=== PATIENT | male | born 1970 | race Asian ===

== ENCOUNTER 2016-03-13 06:36 | Observation (INO) | payer BC ==
[2016-03-13] MEDS ORDERED: Aspirin Low Dose CHEW TAB* 81 MG PO ONE (07:12)
[2016-03-13 08:00] LABS: Hematocrit 44 % (42-52); Hemoglobin 14.8 g/dl (14.0-18.0); Mean Corpuscular HGB Conc 34 g/dl (31-36); Mean Corpuscular Hemoglobin 29 pg (27-31); Mean Corpuscular Volume 87 fL (80-94); Mean Platelet Volume 9 um3 (7.4-10.4); Red Blood Count 5.03 10^6/ul (4.0-5.4); Red Cell Distribution Width 13 % (10.5-15)
--- NOTE | 2016-03-13 08:05 | RAD ---
INDICATION: Chest pain. COMPARISON: Comparison is made with a prior study from January 31, 2012. TECHNIQUE: Dual-energy PA and lateral views of the chest were obtained. FINDINGS: The heart is within normal limits in size. Mediastinal and hilar contours appear within normal limits. The lungs are clear. No pleural effusion or pneumothorax is seen. IMPRESSION: NO EVIDENCE FOR ACTIVE CARDIOPULMONARY DISEASE.
[2016-03-13 08:15] LABS: Troponin I 0.01 ng/mL (<0.04)
[2016-03-13 08:19] LABS: Albumin 3.9 g/dL (3.2-5.2); BUN/Creatinine Ratio 19.2 (8-20); Calcium 8.7 mg/dL (8.6-10.3); EGFR African American 139.1 (>60); EGFR Non-African American 108.1 (>60); Globulin 2.8 g/dL (2-4); Potassium 3.5 mmol/L (3.5-5.0); Total Bilirubin 0.4 mg/dL (0.2-1.0); Total Protein 6.7 g/dL (6.4-8.9)
[2016-03-13] MEDS ORDERED: Nitroglycerin TAB 0.4 MG* 0.4 MG TAB SL ONE (09:05)
--- NOTE | 2016-03-13 09:39 | RAD ---
HISTORY: Vertigo COMPARISONS: None TECHNIQUE: Multiple contiguous axial CT scans were obtained of the head without intravenous contrast. FINDINGS: HEMORRHAGE/INFARCT: There is no hemorrhage or acute infarct. MASSES/SHIFT: There is no mass or shift. EXTRA-AXIAL SPACES: There are no extra-axial fluid collections. SULCI AND VENTRICLES: The sulci and ventricles are normal in size and position for the patient's stated age. CEREBRUM: There are no focal parenchymal abnormalities. BRAINSTEM: There are no focal parenchymal abnormalities. CEREBELLUM: There are no focal parenchymal abnormalities. VESSELS: The vessels are grossly normal. PARANASAL SINUSES: The paranasal sinuses are clear. ORBITS: The orbits are unremarkable. BONES AND SOFT TISSUE: No bone or soft tissue abnormalities are noted. OTHER: None IMPRESSION: NO ACUTE INTRACRANIAL PATHOLOGY.
[2016-03-13] MEDS ORDERED: Acetaminophen TAB* 325 MG PO PRN (12:08)
[2016-03-13] MEDS ORDERED: Ondansetron INJ* 2 MG/ML VIAL IV PRN (12:08)
[2016-03-13] MEDS ORDERED: Heparin VIAL(*) 5000 UNITS/ML VIAL (FIVE THOUSAND) SUBCUT SCH (14:00)
--- NOTE | 2016-03-13 14:38 | HP ---
HISTORY AND PHYSICAL: DATE OF ADMISSION: 03/13/16 PRIMARY CARE PROVIDER: [facility]. He was seeing Dr. Quintero. He does not know his current PCP. PRIMARY CO FOUNDER AND PRESIDENT: Dr. Montgomery. ATTENDING PHYSICIAN WHILE IN THE HOSPITAL: Dr. Alyssa Ashley* (report being dictated by Ibrahima Alexis NP). CHIEF COMPLAINT: Chest pain. HISTORY OF PRESENTING ILLNESS: Mr. Casillas is a 45-year-old male patient that has a history of coronary artery disease. He also has a history of hypertension , hyperlipidemia, and arthritis. He comes into the ER today stating he woke up this morning, he was not feeling very well, he had blurry vision. He felt dizzy and lightheaded. He said that he got up and walked to the bathroom, he had noted that he was having some chest discomfort in his chest that was getting progressively worse and worse. He was concerned at that point because it was not going away. He took a nitro. It still was not going away after one nitro, then he called 911. He does state that yesterday, he was playing volleyball, last few days he has been feeling fatigued and weak more than normal , but no chest pressure except this morning. After playing volleyball yesterday , he noted that he had some left shoulder discomfort after playing and he fell off since then. He denies any recent URI symptoms with the exception that he does have some nasal congestion but denies having any fevers, cough, shortness of breath. No abdominal discomfort, any nausea or vomiting. He denied having any associated discomfort with the chest discomfort today. He decided to come into the ER, was evaluated. There was a concern because of the chest pressure and because of his risk factors, the hospitalist service was asked to evaluate for admission. PAST MEDICAL HISTORY: Significant for: 1. Hypertension. 2. Hyperlipidemia. 3. Arthritis. 4. CAD. PAST SURGICAL HISTORY: 1. He has had a cardiac catheterization, 2010. 2. He has had a shoulder arthroscopy. HOME MEDICATIONS: Include: 1. Plavix 75 mg daily. 2. Aspirin 81 mg daily. 3. Nitro 0.4 mg sublingual q.5 minutes p.r.n. chest pain. 4. Lopressor 25 mg daily. 5. Zocor 40 mg daily. ALLERGIES TO MEDICATIONS: Include no known drug allergies. FAMILY HISTORY: His father had a history of hyperlipidemia. SOCIAL HISTORY: He is , with children. He occasionally drinks alcohol. He does not smoke. Surrogate decision maker is his . REVIEW OF SYSTEMS: There is no documented fever. He denied having any significant weight change. There was no double vision. There was no ear discharge. No rhinorrhea. No sore throat. No thyroid enlargement. There was chest pressure per my HPI. There was no dyspnea on exertion. No orthopnea, no nocturnal dyspnea. No abdominal pain. No nausea, no vomiting. No dysuria, no frequency. No loss of consciousness. No pruritus and no skin ulcerations. Review of 14 systems completed, all others were negative. PHYSICAL EXAMINATION GENERAL: At this time, Mr. Casillas is a 45-year-old male patient. He appears well- nourished, well-developed. He is sitting in the ER stretcher. He does not appear to be in any acute distress. VITAL SIGNS: Reveal blood pressure 145/80 with a pulse of 81, respirations 18, O2 sat 97%, temperature 98.5. HEENT: Head: Atraumatic and normocephalic. Eyes: EOMs are intact. Sclerae anicteric and not pale. Throat: Oral mucosa appears to be moist. No oropharyngeal erythema. NECK: Supple. LUNGS: Clear to auscultation bilaterally. No wheezes, rales, or rhonchi. HEART: Sounds S1, S2. Regular rate and rhythm. No murmurs, rubs, or gallops. ABDOMEN: Soft, flat, nontender. Bowel sounds present. EXTREMITIES: Pulses were 2+ throughout. He is able to move all 4 extremities with 5/5 strength. NEUROLOGICAL: The patient is awake, he is alert, and oriented x3. Tongue midline. Fiscal Assistant were equal. No gross focal deficits. SKIN: Grossly intact. DIAGNOSTIC STUDIES/LAB DATA: Today revealed a WBC of 8.0, RBC of 5.03, hemoglobin 14.8, hematocrit of 44, and a platelet count of 206. The D-dimer is less than 200. Sodium 136, potassium 3.5, chloride 104, bicarb 24, BUN 15, creatinine 0.78, glucose 96, lactate 1.1, calcium 8.7. Total bili 0.4, AST 20, ALT 20, alk phos 60. Troponin 0.01, repeat 0.01. He did have a brain CT as well, which revealed no acute intracranial pathology. He had a chest x-ray obtained today, on my review, I did not appreciate any acute infiltrates or effusion, Radiology read it as no evidence for active cardiopulmonary disease. He did have an EKG as well today, which showed a normal sinus rhythm, rate of 79 , normal axis, no ST elevations or T-wave elevations, flattened T waves in lead III. Old medical records were reviewed. ASSESSMENT AND PLAN: Mr. Casillas is a 45-year-old male patient with multiple risk factors, coming into the ER today with complaint initially of blurry vision , which has subsided. In addition of this, also did have reports of chest discomfort, feeling fatigued over the last few days, and he has some shoulder pain after playing volleyball yesterday. He will be admitted under observation status for: 1. Chest discomfort. He has a KWASI score of 3 at this point. I do feel though because of the recurrence of his chest discomfort today and he has not had a stress test in over a year, I think he deserves a nuclear stress test to be done tomorrow. I tried to get it done today, but unfortunately we do not have the nuclear medicine to do it. I do think though because of the blurry vision, I would like to keep him overnight to observe for any more symptoms. We will go ahead and continue the Plavix and aspirin. He is on a beta flori. Continue these medications. He is also on a statin. So, he is medically optimized with the exception of nitrates, but we do not need those yet. He is not having any discomfort currently. I think at this point, his two negative troponins, we will go head and monitor him overnight. We ordered a stress test in morning. We will place him on telemetry. We will continue to follow. 2. Hypertension. Continue meds as prescribed. 3. Hyperlipidemia. Continue statin therapy. We will check lipids in the morning. 4. Coronary artery disease. We will go ahead and continue his statin, beta flori, aspirin, and Plavix. 5. DVT prophylaxis. He will be placed on SCDs. He is low risk. 6. Fluids, electrolytes, and nutrition. He can have a heart-healthy diet. 7. Code status. He is a full code. TIME SPENT: On the admission was 60 minutes; greater than half the time was spent [id number] with the patient obtaining my history and physical; other half time was spent going over the plan of care with the patient and implementing the plan of care. I did discuss the plan of care with my attending physician, Dr. Ashley; she is in agreement. IBRAHIMA ALEXIS NP ADDENDUM TO HISTORY AND PHYSICAL: ADDENDUM: Mr. Casillas is a 45-year-old male with history of heart disease, who presents complaining of chest pain. His initial workup in the ED is negative. He is going to be placed for overnight observation and stress test in the morning if his troponins continue to be negative. For further details of the patient's presentation and plan, please see history and physical dictated by Ibrahima Alexis NP, on 03/13/16, with which I agree. Alyssa Ashley MD CC: [facility]; Dr. Montgomery* [id number]/CPS #: [id number]/CPS #: [id number]
--- NOTE | 2016-03-13 16:08 | ED ---
Chanel Mckeon Adam, scribed for Sheldon Villalba MD on 03/13/16 at 0809 . HPI Chest Pain - HPI Summary HPI Summary: A 45 y/o male presents to the ED c/o CP that woke him up last night with blurry vision, dizziness, and nausea. This morning, he feels "off" with left shoulder pain and chest pain he describes as throbbing and rates as 5/10. He reports playing volleyball last night. Denies pain with inspiration, dizziness, or lightheadedness. Patient has a hx of CAD with 3 stents placed at [facility] in 2010 - he states these symptoms feel similar to when he needed care 6 years ago. He has been taking his medication as prescribed with no missed doses. FHx is positive for hyperlipidemia and cardiac disease. Drinks alcohol occasionally and does not use tobacco. - History of Current Complaint Chief Complaint: EDChestPainROMI Time Seen by Provider: 03/13/16 07:32 Hx Obtained From: Patient, Family/Out Patient Therapist - Onset/Duration: Started Hours Ago - This morning 05:30 Timing: Constant Initial Severity: Moderate Current Severity: Moderate Pain Intensity: 5 Pain Scale Used: 0-10 Numeric Chest Pain Location: Left Anterior Chest Pain Radiates: Yes Chest Pain Radiates To:: Shoulder - Left Character: Dull/Aching, Other: - Throbbing Aggravating Factor(s): Exertion - Volleyball last night Alleviating Factor(s): Nothing Associated Signs and Symptoms: Positive: Nausea, Other: - Blurred vision, dizziness. Negative: Fever, Vomiting Related History: Similar Episode/Dx as: - Needed cardiac catheterization - March 2010 - Allergy/Home Medications Allergies/Adverse Reactions: Allergies Allergy/AdvReac Type Severity Reaction Status Date / Time No Known Allergies Allergy Verified 01/31/12 21:39 Home Medications: Home Medications Aspirin EC Low Dose* [Ecotrin EC Low Dose*] 81 mg PO DAILY 03/13/16 [History Confirmed 03/13/16] Metoprolol Tartrate TAB* [Lopressor TAB*] 25 mg PO DAILY 03/13/16 [History Confirmed 03/13/16] Nitroglycerin TAB 0.4 MG* 0.4 mg SL Q5M PRN 03/13/16 [History Confirmed 03/13/16 ] Simvastatin (NF) [Zocor (NF)] 40 mg PO DAILY 03/13/16 [History Confirmed ] PMH/Surg Hx/FS Hx/Imm Hx Endocrine/Hematology History: Denies: Hx Diabetes Cardiovascular History: Reports: Hx Coronary Artery Disease - Surgical History Surgery Procedure, Year, and Place: PTCA - 3 STENTS IN RIGHT MAIN ARTERY Infectious Disease History: No Infectious Disease History: Denies: Traveled Outside the [place] in Last 30 Days - Family History Known Family History: Positive: Cardiac Disease - Father, Other - Hyperlipidemia - Social History Occupation: Employed Full-time Alcohol Use: Occasionally Substance Use Type: Reports: None Review of Systems Constitutional: Negative Negative: Fever, Chills Positive: Blurred Vision. Negative: Erythema ENT: Negative Negative: Sore Throat Positive: Chest Pain Respiratory: Negative Negative: Shortness Of Breath, Cough Positive: Nausea. Negative: Abdominal Pain, Vomiting, Diarrhea Genitourinary: Negative Negative: dysuria, hematuria Positive: Arthralgia - Left arm pain Skin: Negative Negative: Rash Neurological: Other - Dizziness Psychological: Normal All Other Systems Reviewed And Are Negative: Yes Physical Exam - Summary Physical Exam Summary: Constitutional: Well-developed, Well-nourished, Alert. (-) Distressed Skin: Warm, Dry HENT: Normocephalic; Atraumatic Eyes: Conjunctiva normal Neck: Musculoskeletal ROM normal neck. (-) JVD, (-) Stridor, (-) Tracheal deviation Cardio: Rhythm regular, rate normal, Heart sounds normal; Intact distal pulses; The pedal pulses are 2+ and symmetric. Radial pulses are 2+ and symmetric. (-) Murmur Pulmonary/Chest wall: Effort normal. (-) Respiratory distress, (-) Wheezes, (-) Rales Abd: Soft, (-) Tenderness, (-) Distension, (-) Guarding, (-) Rebound Musculoskeletal: (-) Edema, No reproducible shoulder or chest pain. Lymph: (-) Cervical adenopathy Neuro: Alert, Oriented x3 Psych: Mood and affect Normal Vital Signs On Initial Exam: Initial Vitals Temp Pulse Resp BP Pulse Ox 98.5 F 82 24 126/86 99 03/13/16 07:00 03/13/16 07:00 03/13/16 07:00 03/13/16 07:00 03/13/16 07:00 - [place] Coma Scale Coma Scale Total: 15 Diagnostics - Vital Signs Vital Signs Temp Pulse Resp BP Pulse Ox 03/13/16 07:30 76 18 144/90 97 03/13/16 07:04 84 21 97 03/13/16 07:00 98.5 F 82 24 146/85 99 - Laboratory Lab Results: Lab Results 03/13/16 Range/Units 07:00 WBC 8.0 (3.5-10.8) 10^3/ul RBC 5.03 (4.0-5.4) 10^6/ul Hgb 14.8 (14.0-18.0) g/dl Hct 44 (42-52) % MCV 87 (80-94) fL MCH 29 (27-31) pg MCHC 34 (31-36) g/dl RDW 13 (10.5-15) % Plt Count 206 (150-450) 10^3/ul MPV 9 (7.4-10.4) um3 Neut % (Auto) 51.9 (38-83) % Lymph % (Auto) 28.8 (25-47) % [place] % (Auto) 15.2 H (1-9) % Eos % (Auto) 3.2 (0-6) % Baso % (Auto) 0.9 (0-2) % Absolute Neuts (auto) 4.2 (1.5-7.7) 10^3/ul Absolute Lymphs (auto) 2.3 (1.0-4.8) 10^3/ul Absolute Monos (auto) 1.2 H (0-0.8) 10^3/ul Absolute Eos (auto) 0.3 (0-0.6) 10^3/ul Absolute Basos (auto) 0.1 (0-0.2) 10^3/ul Absolute Nucleated RBC 0 10^3/ul Nucleated RBC % 0 Result Diagrams: 03/13/16 07:00 03/13/16 07:00 Lab Statement: Any lab studies that have been ordered have been reviewed, and results considered in the medical decision making process. - Radiology CXR Xray Interpretation: No Acute Changes Radiology Interpretation Completed By: Radiologist - CT Brain CT Interpretation: No Acute Changes CT Interpretation Completed By: Radiologist - EKG 06:34 Cardiac Rate: NL - 79 EKG Rhythm: Sinus Rhythm EKG Interpretation: No STEMI Chest Pain Course/Dx - Course Assessment/Plan: CP related to exertion in a setting of known CAD. R/O MO. - Diagnoses Provider Diagnoses: Chest pain, unspecified, Vertigo - Provider Notifications Discussed Care Of Patient With: Dr. Ashley (Hospitalist, 10:35) - Agrees to accept patient Discharge - Discharge Plan Condition: Stable Disposition: ADMITTED TO [facility] documentation as recorded by the Chanel muller Adam accurately reflects the service I personally performed and the decisions made by Deejay florence Jerry, MD.
--- NOTE | 2016-03-13 17:30 | HP ---
HISTORY AND PHYSICAL: ADDENDUM: Mr. Casillas is a 45-year-old male with history of heart disease, who presents complaining of chest pain. His initial workup in the ED is negative. He is going to be placed for overnight ob servation and stress test in the morning if his troponins continue to be negative. For further deta ils of the patient's presentation and plan, please see history and physical dictated by Ibrahima rogel NP, on 03/13/16, with which I agree. [id number]/[facility] #: [id number]
[2016-03-13] MEDS ORDERED: Atorvastatin* 20 MG TAB PO SCH (23:00)
[2016-03-13] MEDS: Aspirin EC Low Dose* 81 MG TAB.EC PO SCH (23:54)
[2016-03-13] MEDS: Metoprolol Tartrate TAB* 25 MG PO SCH (23:55)
[2016-03-13] MEDS: Clopidogrel TAB* 75 MG PO SCH (23:55)
[2016-03-14 05:26] LABS: Hematocrit 45 % (42-52); Hemoglobin 15.3 g/dl (14.0-18.0); Mean Corpuscular HGB Conc 34 g/dl (31-36); Mean Corpuscular Hemoglobin 30 pg (27-31); Mean Corpuscular Volume 87 fL (80-94); Mean Platelet Volume 8 um3 (7.4-10.4); Red Blood Count 5.15 10^6/ul (4.0-5.4); Red Cell Distribution Width 13 % (10.5-15); White Blood Count 7.6 10^3/ul (3.5-10.8)
[2016-03-14 05:42] LABS: BUN/Creatinine Ratio 15.8 (8-20); Calcium 9.2 mg/dL (8.6-10.3); EGFR African American 143.3 (>60); EGFR Non-African American 111.4 (>60); HDL Cholesterol 38.1 mg/dL; Potassium 3.8 mmol/L (3.5-5.0)
--- NOTE | 2016-03-14 13:50 | RAD ---
HISTORY: Coronary artery disease, chest pain COMPARISONS: None TECHNIQUE: A 2 day stress/rest myocardial perfusion study was performed, with exercise stress. The exercise portion was performed using the Karl protocol, for a total METs of 12.8. The stress portion was monitored by Dr. Zavala. Gated SPECT imaging was performed, with CT-based attenuation correction DOSE: Stress: Technetium 99m tetrofosmin, 25.6 millicuries, injected at 11:18 AM on March 14, 2016 Rest: Technetium 99m tetrofosmin, 24.81 millicuries, injected at 1:39 PM on March 13, 2016 Pharmacologic agent: None FINDINGS: CARDIAC MONITORING: No EKG changes of ischemia with stress. Maximum heart rate of 182 bpm, 104% of predicted. EF: 75 % with stress, 78% with rest TID: 0.95 MOTION: Normal motion, with normal wall thickening. PERFUSION: There are no fixed or reversible perfusion defects. OTHER: None IMPRESSION: NO FIXED OR REVERSIBLE PARENCHYMAL PERFUSION DEFECTS ASSESSMENT: LOW RISK. Based on imaging criteria from ACC/AHA 2002. Guideline Update for the Management of Patient's with Chronic Stable Angina, table 23. Noninvasive Risk Stratification.
[2016-03-14] MEDS: Aspirin EC Low Dose* 81 MG TAB.EC PO SCH (14:05)
[2016-03-14] MEDS: Clopidogrel TAB* 75 MG PO SCH (14:05)
[2016-03-14] MEDS: Metoprolol Tartrate TAB* 25 MG PO SCH (14:05)
[2016-03-14 16:16] VITALS: BP 120/75
--- NOTE | 2016-03-14 18:51 | PN ---
Subjective Date of Service: 03/14/16 Interval History: Patient seen and examined at bedside. Pt states that he has been chest pain free today. Pt feels that his chest pain was related to a stressful event yesterday. Pt reports that he has an appointment with Cardiology soon, Pt encouraged to keep that appointment. Denies fever, chills, shortness of breath, chest discomfort, N/V/D. Tele: Sinus rate, 70-80's. Pt with 2 short bursts of sinus tachycardia overnight. Family History: Unchanged from Admission Social History: Unchanged from Admission Past Medical History: Unchanged from Admission Objective Vital Signs 03/13/16 03/13/16 03/14/16 19:21 23:56 04:24 Temperature 98.3 F 98.9 F 98.2 F Pulse Rate 92 92 64 Respiratory 18 16 16 Rate Blood Pressure 133/78 116/77 105/67 (mmHg) O2 Sat by Pulse 97 97 98 Oximetry 03/14/16 03/14/16 07:49 15:49 Temperature 99.0 F 98.3 F Pulse Rate 66 72 Respiratory 16 14 Rate Blood Pressure 113/69 120/75 (mmHg) O2 Sat by Pulse 98 99 Oximetry Oxygen Devices in Use Now: None Appearance: NAD, Pt sitting up in bed. Eyes: No Scleral Icterus, PERRLA Ears/Nose/Mouth/Throat: NL Teeth, Lips, Gums, Mucous Membranes Moist Neck: NL Appearance and Movements; NL JVP, Trachea Midline Respiratory: Symmetrical Chest Expansion and Respiratory Effort, Clear to Auscultation Cardiovascular: NL Sounds; No Murmurs; No JVD, RRR Abdominal: NL Sounds; No Tenderness; No Distention Extremities: No Edema Skin: No Rash or Ulcers Neurological: Alert and Oriented x 3, NL Muscle Strength and Tone Lines/Tubes/Other Access: Clean, Dry and Intact Peripheral IV - site benign. Nutrition: Taking PO's Result Diagrams: 03/14/16 05:15 03/14/16 05:15 Additional Lab and Data: Assess/Plan/Problems-Billing Assessment: Mr. Casillas is a 45 yo male with PMH significant for HTN, HLD, and CAD who presented to the emergency room with chest discomfort and fatigued with associated shoulder pain after playing volleyball. - Patient Problems (1) Chest pain Code(s): R07.9 - CHEST PAIN, UNSPECIFIED SNOMED Code(s): 71476883 Comment: Chest pain free. Pt had a 2 day stress test that was low risk. Trops 0.01, 0.01, 0.00. Continue ASA, Plavix, statin and B-flori. (2) HTN (hypertension) Code(s): I10 - ESSENTIAL (PRIMARY) HYPERTENSION SNOMED Code(s): 46534197 Comment: BP controlled. Continue home medications. (3) HLD (hyperlipidemia) Code(s): E78.5 - HYPERLIPIDEMIA, UNSPECIFIED SNOMED Code(s): 20993389 Comment: Continue statin. (4) DVT prophylaxis Code(s): NVM8344 - SNOMED Code(s): 294513653 (5) Full code status Code(s): Z78.9 - OTHER SPECIFIED HEALTH STATUS SNOMED Code(s): 516671738 Status and Disposition: OBV. Stable for discharge to home.
--- NOTE | 2016-03-15 16:47 | DS ---
DISCHARGE SUMMARY: DATE OF ADMISSION: 03/13/16 DATE OF DISCHARGE: 03/14/16 ATTENDING PHYSICIAN: Dasha Dooley DO * (dictated by Mi Huynh NP). PRIMARY CARE PROVIDER: Dr. Clayton Silver. PRIMARY DIAGNOSIS: Atypical chest pain. SECONDARY DIAGNOSES: 1. Hypertension. 2. Hyperlipidemia. 3. Coronary artery disease. STUDIES WHILE IN THE HOSPITAL: 1. Nuclear cardiac stress test done over 2 days on 03/13/16 and 03/14/16. Radiologist's impression: No fixed or reversible parenchymal perfusion defects. Low risk. Blasting Helper's conclusion: Maximal exercise for 10, 14 of a Karl. Normal sinus rhythm with TAMEKA at rest. Appropriate heart rate response. Hypertensive blood pressure response. Good exercise capacity. No significant ST changes with stress. Blasting Helper's conclusion: Negative stress EKG. Low risk. 2. Chest x-ray on 03/13/16. Radiologist's impression: No evidence for acute cardiopulmonary disease. 3. Brain CT on 03/13/16. Radiologist's impression: No acute intracranial pathology. DISCHARGE MEDICATIONS: Continued home medications: 1. Plavix 75 mg oral daily. 2. Aspirin 81 mg oral daily. 3. Metoprolol tartrate 25 mg oral daily. 4. Simvastatin 40 mg oral daily. 5. Nitroglycerin 0.4 mg sublingual every 5 minutes as needed for chest pain. HISTORY OF PRESENT ILLNESS/HOSPITAL COURSE: Mr. Casillas is a 45-year-old male with past medical history significant for coronary artery disease, hypertension , and hyperlipidemia, who presented to the emergency room after waking up not feeling well and reportedly having blurry vision. The patient also reports having dizziness and lightheadedness. The patient noted that when he was walking to the bathroom he had some chest discomfort that progressively was increasing. At that point, the patient was concerned because it was not going away, he took a nitro. The patient reports that the pain did not go away after one nitro and he called 911. The patient also states that the day prior to his admission, he had been playing volley ball and over the last few days he reports increased fatigue and weakness, but no reports of chest discomfort while playing volleyball. The patient also noted that he started having left shoulder discomfort after playing volleyball and he has felt off ever since. While in the emergency room, the patient had chest x-ray showing no acute findings. The patient also had brain CT showing no acute findings. The patient had an EKG that showed a normal sinus rhythm with no ST elevation or T-wave inversion or flattening, although the patient did have some flattened T-waves in lead 3. The patient had labs that were fairly unremarkable. Based on the patient's history and complaints of chest discomfort and increasing fatigue and arm pain, hospitalists were asked to evaluate the patient for admission. While in the hospital, the patient reports being chest discomfort free except for a discomfort that he reports having overnight that resolved. The patient describes this discomfort as more like a palpitation. It is to note that overnight the patient was noted to have two brief episodes of tachycardia with heart rates up into the 120s. The patient's troponins were essentially flat at 0.01, 0.01, and 0.00. The patient was able to ambulate without chest discomfort. He underwent a 2 day nuclear cardiac stress test that was low risk. The patient is already medically optimized on medications including a beta-flori, statin, Plavix and aspirin. Mr. Casillas is stable for discharge to home today. Vital signs are as follows: Temperature 98.3, heart rate 72, respiratory rate 14, O2 sat 99%, blood pressure 120/75. DISCHARGE PLAN: Mr. Casillas will be discharged to home. Activity as tolerated. He should be on a heart healthy diet. As far as the patient's history of acute coronary syndrome, he should be continued on Plavix, aspirin, his beta- flori and statin. The patient was given a new prescription for sublingual nitroglycerin. He reports that what he had at home was outdated. Based on the patient's reports of having what sounds like may be palpitations and slight period of tachycardia overnight, I recommend if the patient continues to have similar symptoms that he be placed on Holter or event monitor to further evaluate the his symptoms. As far as the patient's hypertension and hyperlipidemia, he should be continued on his beta- flori and statin. As far as the patient's left shoulder discomfort, I suspect that he strained some muscles while playing volleyball. The patient had reported that he had a followup with Dr. Montgomery with Cardiology coming up in the near future. When I attempted to call the sawyer helper's office to verify this, they reported that the patient has cancelled multiple visits and that they were unable to make an appointment for him at this time, but if his primary care doctor referred him back to them they would be happy to see him. I recommend if the patient is felt to need further cardiac evaluation and followup, a referral will be made back to Cardiology. The patient has been asked to return to emergency room for return of chest pain or shortness of breath. This is a summarized report of a complex medical history and hospital stay. For further details, please see the entire medical record. TIME SPENT: Time for this discharge was 50 minutes, and 25 minutes was spent face- to-face with the patient and family discussing discharge plans and instructions. CONDITION ON DISCHARGE: Stable. Reviewed by CRISTIANA MASSEY 03/22/16 [id number] CC: Clayton Silver MD* [id number]/CPS #: [id number] MTDD
== END 2016-03-14 16:15 | disposition home or self-care (01) ==
LOC: ED 06:36 → MEDTELE 10:44
PROVIDERS: ADMIT Internal Medicine; ATTEND Hospitalist
DX: R07.9 Chest pain, unspecified (principal); R00.0 Tachycardia, unspecified; I10 Essential (primary) hypertension; E78.5 Hyperlipidemia, unspecified; M19.90 Unspecified osteoarthritis, unspecified site; I25.10 Atherosclerotic heart disease of native coronary artery without angina pectoris; Z95.5 Presence of coronary angioplasty implant and graft; Z79.02 Long term (current) use of antithrombotics/antiplatelets; Z79.82 Long term (current) use of aspirin; Z79.899 Other long term (current) drug therapy
CPT/HCPCS: 36415; 70450; 71020; 78452; 80048; 80053; 80061; 83605; 84484; 85025; 85379; 85610; 93005; 93017; 99284; A9270-GY; A9502; G0378

== ENCOUNTER 2018-12-18 18:13 | Emergency (ER) | payer BC, OTHER ==
--- OUTSIDE RECORDS SUMMARY | 2018-12-18 18:19 | XMS REPORT | Summary of Care ---
:1970 Author Organization [facility] Address [address] [place] [address] Care Team Providers Name Role Phone Mart Hamlin Primary Care Provider Reason for Visit Reason Comments Follow Up 1 yr., CAD, tired (headaches x 2 mos). Encounter Details Date Type Department Care Team Description 12/09/2018 Office Visit [facility] [place], Coronary artery disease involving [place] coronary artery of [place] heart without angina pectoris ( Primary Dx); Cardiology MD Thanh Dyslipidemia; [address] [facility] [address] [facility] Nonintractable episodic headache, [place] [address] [place] [address] [phone] Allergies No Known Allergiesdocumented as of this encounter (statuses as of 12/09/2018) Medications Medication Sig Dispensed Refills Start Date End Date Status Aspirin 81 MG Oral Take 81 mg 0 Active Tab by mouth DAILY. diclofenac EC Take 75 mg 60 Tab 2 04/21/2018 Active (VOLTAREN) 75 MG by mouth TWO Oral Tab EC TIMES DAILY NEEDED (elbow pain). ezetimibe (ZETIA) TAKE 1 90 Tab 3 08/12/2018 Active 10 MG Oral Tab TABLET BY MOUTH ONCE DAILY. loratadine Take 1 Tab 30 Tab 11 08/19/2018 Active (CLARITIN,ALAVERT) by mouth 10 MG Oral Tab DAILY. atorvastatin Take 1 Tab 30 Tab 5 09/11/2018 Active (LIPITOR) 80 MG by mouth Oral Tab DAILY. propranolol Take 1 Cap 30 Cap 11 12/09/2018 Active (INDERAL LA) 80 MG by mouth Oral CAPSULE SR 24 DAILY. HRIndications: Coronary artery disease involving [place] coronary artery of [place] heart without angina pectoris metoprolol take 1 60 Tab 5 04/21/2018 Discontinued (LOPRESSOR) 25 MG tablet by 9 (Provider Oral Tab mouth once Discontinued) daily documented as of this encounter (statuses as of 12/09/2018) Active Problems Problem Noted Date Dermatitis 07/10/2017 Elevated cholesterol CAD (coronary artery disease) Overview: has stent Anxiety documented as of this encounter (statuses as of 12/09/2018) Immunizations Name Administration Dates Next Due Influenza (IM) Preservative Free 02/19/2018 documented as of this encounter Social History Tobacco Use Types Packs/Day Years Used Date Never Smoker Smokeless Tobacco: Never Used Alcohol Use Drinks/Week oz/Week Comments Yes Occasionally Sex Assigned at Date Recorded Not on file Job Start Date Occupation Industry Not on file Not on file Not on file Travel History Travel Start Travel End No recent travel history available. documented as of this encounter Last Filed Vital Signs Vital Sign Reading Time Taken Comments Blood Pressure 132/70 12/09/2018 1:41 PM EDT Pulse 77 12/09/2018 1:41 PM EDT Temperature - - Respiratory Rate - - Oxygen Saturation - - Inhaled Oxygen Concentration - - Weight 74.3 kg (163 lb 11.2 oz) 12/09/2018 1:41 PM EDT Height 167.6 cm (5' 6") 12/09/2018 1:41 PM EDT Body Mass Index 26.42 12/09/2018 1:41 PM EDT documented in this encounter Patient Instructions Patient InstructionsMcThanh Ridley MD - 12/09/2018 1:40 PM EDT STOP taking metoprolol and START taking propranolol 80mg once daily. Work on doing some more regular exercise. Get your bloodwork checked today. Follow up with me in 1 year or sooner if needed. documented in this encounter Progress Notes hTanh Eldridge MD - 12/09/2018 1:40 PM EDT [facility] Note Patient: Rodrigo Casillas Date of : 1970 Date of Service: 12/09/2018 REFERRING PRACTITIONER: Thanh Eldridge PRIMARY CARE PROVIDER: Mart Hamlin Chief Complaint: Chief Complaint Patient presents with Follow Up 1 yr., CAD, tired (headaches x 2 mos). History of Present Illness: We had the pleasure of seeing Rodrigo Casillas today at the [facility] Cardiology Office. He is a 48-y.o. male with hyperlipidemia and CAD s/p PCI with 3 stents to the LADat [facility] in April 2010. Mr. Casillas returns to cardiology clinic today for routine annual f/u of his CAD. Since his last visit with me, he reports that he's been feeling a lot of fatigue over the past 2-3 months. He doesn't feel sleepy tired, but has noted some intermittent headaches that occur most often in the afternoon ( particularly if he misses coffee). Takes ibuprofen for the headache, which helps the BARROSO. Stays active with volleyball and walking; denies any CP/pressure or limiting dyspnea. Denies any palpitations,lightheadedness, or syncope. No orthopnea, paroxysmal dyspnea, or lower extremity edema. Patient Active Problem List Diagnosis Elevated cholesterol CAD (coronary artery disease) Anxiety Dermatitis Past Medical History: Diagnosis Date Anxiety CAD (coronary artery disease) has stent Elevated cholesterol Past Surgical History: Procedure Laterality Date ANGIOPLASTY STENT CORONARY VIA GROIN 05/01/2010 LEFT HEART CARDIAC CATH 05/01/2010 stenting x3 of mid LAD [place] SHOULDER SURG PROC UNLISTED Right RCR, Dr. Maloney No Known Allergies Current Outpatient Medications Medication Aspirin 81 MG Oral Tab atorvastatin (LIPITOR) 80 MG Oral Tab diclofenac EC (VOLTAREN) 75 MG Oral Tab EC ezetimibe (ZETIA) 10 MG Oral Tab loratadine (CLARITIN,ALAVERT) 10 MG Oral Tab metoprolol (LOPRESSOR) 25 MG Oral Tab Family History Problem Relation Age of Onset High Cholesterol Mother High Cholesterol Father Heart Father Diabetes Paternal Grandmother Diabetes Paternal Grandfather High Cholesterol Sister High Cholesterol Sister Anesth Problems No family history Arthritis No family history Cancer No family history Clotting Disorder No family history Heart Disease No family history Hypertension No family history Kidney Disease No family history Thyroid Disease No family history Social History Socioeconomic History Marital status: Spouse name: Not on file Number of children: Not on file Years of education: Not on file Highest education level: Not on file Occupational History Not on file Social Needs Financial resource strain: Not on file Food insecurity: Worry: Not on file Inability: Not on file Transportation needs: Medical: Not on file Non-medical: Not on file Tobacco Use Smoking status: Never Smoker Smokeless tobacco: Never Used Substance and Sexual Activity Alcohol use: Yes Comment: Occasionally Drug use: No Sexual activity: Yes Partners: Female Lifestyle Physical activity: Days per week: Not on file Minutes per session: Not on file Stress: Not on file Relationships Social connections: Talks on phone: Not on file Gets together: Not on file Attends yarsanism service: Not on file Active member of club or organization: Not on file Attends meetings of clubs or organizations: Not on file Relationship status: Not on file Intimate partner violence: Fear of current or ex partner: Not on file Emotionally abused: Not on file Physically abused: Not on file Forced sexual activity: Not on file Other Topics Concern Back Care Not Asked Bike Helmet Not Asked Blood Transfusions Not Asked Caffeine Concern Not Asked Exercise Not Asked Hobby Hazards Not Asked International Travel Not Asked Service Not Asked Occupational Exposure Not Asked Seat Belt Not Asked Self-Exams Not Asked Sleep Concern Not Asked Special Diet Not Asked Stress Concern Not Asked Weight Concern Not Asked Social History Narrative Not on file Review of Systems - Negative except for mild intermittent abdominal discomfort x 2 months and as noted in HPI. Physical Exam: Vitals: 12/09/18 1341 BP: 132/70 BP Location: Right arm Patient Position: Sitting Pulse: 77 Weight: 163 lb 11.2 oz (74.3 kg) Height: 5' 6" (1.676 m) Body mass index is 26.42 kg/m. General: Well nourished, alert 48-y.o. male in [facility] HEENT: anicteric, MMM, no E/E OP, conj pink Neck: JVP approx 5 cm above RA, no carotid bruits or LAD CV: RRR, normal s1/s2, no appreciable murmurs, rubs, or gallops Pulm: CTA bilaterally without wheezes, rhonchi, or rales. No increased work of breathing. Abd: soft, NT, ND, +BS. No appreciable pulsatile masses or bruits. Ext: no lower extremity edema, no cyanosis, no cords, redness, or warmth, 2+ distal pulses Neuro: no gross focal deficits Skin: No visible lesions Labs: Lab Results Component Value Date NA 142 04/13/2018 K 4.4 04/13/2018 CL 107 04/13/2018 CO2 23 04/13/2018 GLUCOSE 92 04/13/2018 BUN 15 04/13/2018 CREATININE 0.7 (L) 04/13/2018 CALCIUM 9.0 04/13/2018 TP 7.5 04/13/2018 ALBUMIN 4.1 04/13/2018 AST 55 04/13/2018 ALT 67 04/13/2018 ALK 71 04/13/2018 TBILI 0.3 04/13/2018 EGFR >60 04/13/2018 No results found for: BNP Lab Results Component Value Date CHOL 141 04/13/2018 TRIG 50 04/13/2018 HDL 38 (L) 04/13/2018 LDL 93 04/13/2018 LDLHDLRATIO 2.4 04/13/2018 CHOLHDLRATIO 3.7 04/13/2018 Cardiac Studies: EKG Today (I personally reviewed): NSR in 70s. Normal EKG. TTE 11/13/17: FINAL IMPRESSION: Normal left heart size with normal LV systolic function and no regional wall motion abnormalities; estimated LVEF 55-60%. Normal right heart size and RV systolic function. No structurally or hemodynamically significant valvular disease. No pericardial effusion. Exercise SPECT at [facility] 03/14/16: -Exercised for 12.8 METs without CP -No EKG changes -No fixed or reversible perfusion defects -LVEF 70% TTE at [facility] 05/28/11: -LVEF 60% -Normal right heart -Trace MR and TR Left Heart Cath at [facility] 2010: Report not available, but per notes, had 80% mLAD treated with PCI and 40% RCA. Assessment & Plan: Rodirgo Casillas is a 48-y.o. male with hyperlipidemia and CAD s/p PCI with 3 stents to the LAD at [facility] in April 2010. ICD-9-CM ICD-10-CM 1. Coronary artery disease involving [place] coronary artery of [place] heart without angina pectoris 414.01 I25.10 propranolol (INDERAL LA) 80 MG Oral CAPSULE SR 24 HR COMPREHENSIVE METABOLIC PANEL LDL, DIRECT AMBULATORY 12 LEAD EKG (GLOBAL) LDL, DIRECT COMPREHENSIVE METABOLIC PANEL 2. Dyslipidemia 272.4 E78.5 3. Nonintractable episodic headache, unspecified headache type 784.0 R51 1. Coronary Artery Disease, s/p PCI to LAD: Currently asymptomatic from an ischemic standpoint. I recommend the following medical regimen: Antiplatelets: Continue aspirin 81 mg daily. Statin: LDL 93 in April 2018 despite max dose atorvastatin as well as ezetimibe. Insurancedidn't cover Crestor. Will recheck a direct LDL today. If that is still > 70 then I'll have to consider starting Repatha and stopping ezetimibe. Beta-flori: Has been taking Lopressor once daily for some reason. Given what sounds like migraine headaches, I'm going to try switching him from metoprolol to propranolol ER 80mg once daily. GERBER-inhibitor/ARB: N/A. BP and LVEF normal. Thank you for allowing me to participate in the care of Rodrigo Casillas. We will plan on f/u in our office in 1 year or sooner prn. If you have any questions or concerns please feel free to call our office at . Thanh Eldridge MD, 12/09/2018, 14:56 This note was created using my previous note as a template; changes were made where appropriate, andall information in the current note is up to date to the best of my knowledge. documented in this encounter Plan of Treatment Date Type Specialty Care Team Description 01/19/2019 Office Visit Internal Medicine Mart Hamlin MD [address] [place] [id number] 12/16/2019 Office Visit Cardiology Thanh Eldridge MD [address] [place] [id number] Name Type Priority Associated Diagnoses Date/Time COMPREHENSIVE METABOLIC Lab Routine Coronary artery disease 12/09/2018 2: 20 PM PANEL involving [place] EDT coronary artery of [place] heart without angina pectoris LDL, DIRECT Lab Routine Coronary artery disease 12/09/2018 2:20 PM involving [place] EDT coronary artery of [place] heart without angina pectoris Name Type Priority Associated Diagnoses Order Schedule COMPREHENSIVE METABOLIC Lab Routine Coronary artery disease Expected: 12/09 PANEL [place] (Approximate), coronary artery of Expires: 12/10/2019 [place] heart without angina pectoris LDL, DIRECT Lab Routine Coronary artery disease Expected: 12/09/2018 involving [place] (Approximate), coronary artery of Expires: 12/10/2019 [place] heart without angina pectoris AMBULATORY 12 LEAD EKG EKG Routine Coronary artery disease Ordered: 2018 (GLOBAL) [place] coronary artery of [place] heart without angina pectoris Health Maintenance Due Date Last Done Comments MEDICARE ANNUAL WELLNESS 1970 VISIT PNEUMOCOCCAL 0-64 YRS (1 of 10/27/1977 1 - PPSV23) DEPRESSION SCREENING 10/13/2018 10/13/2017 INFLUENZA VACCINE (#1) 2018 02/19/2018 DIABETES SCREENING 04/13/2019 04/13/2018, 05/20/2017 LIPID DISORDER SCREENING 09/12/2019 09/11/2018, 04/13/2018, 10/09/2017, Additional history exists HPV IMMUNIZATION SERIES Aged Out No longer eligible based on patient's age to complete this topic MENINGOCOCCAL VACCINE IMM Aged Out No longer eligible based on patient's age to complete this topic documented as of this encounter Results Not on filedocumented in this encounter Visit Diagnoses Diagnosis Coronary artery disease [place] coronary artery of [place] heart without angina pectoris - Primary Dyslipidemia Other and unspecified hyperlipidemia Nonintractable episodic headache, unspecified headache type documented in this encounter Insurance Payer Benefit Plan / Subscriber ID Effective Dates Phone Address Type Group [employer] MEDICARE FIDELIS CARE xxxxxxxxxxx 2017-Present [employer] documented as of this encounter
[2018-12-18 18:54] VITALS: BP 127/74
--- NOTE | 2018-12-18 19:12 | UC ---
Complaint Male HPI - HPI Summary HPI Summary: Patient is a 48-year-old male presenting with pelvic pressure, urinary frequency , urgency, and burning 3 weeks. Patient started off mild increasingly worsen. Notes itching but this is something that happens occasionally and it goes away on its own. Itching is not currently present. Notes constant suprapubic pressure. Notes "heaviness" of testicles but no pain. Notes intermittent headaches over the past few weeks. Denies any alleviating factors. Denies discharge from penis. Denies blood in the urine. Denies flank pain. Denies concern for STI. Denies any genital lesions or rashes. Denies any new sexual partners. Denies history of prostate issues. Denies fever and chills. Denies nausea vomiting and diarrhea. Patient is eating and drinking normally. - History of Current Complaint Chief Complaint: UCAbdominalPain Stated Complaint: ABDOMINAL PAIN Hx Obtained From: Patient Onset/Duration: Gradual Onset, Lasting Weeks Timing: Constant Severity Currently: Moderate Pain Intensity: 7 Pain Scale Used: 0-10 Numeric - Allergies/Home Medications Allergies/Adverse Reactions: Allergies Allergy/AdvReac Type Severity Reaction Status Date / Time No Known Allergies Allergy Verified 12/18/18 18:54 PMH/Surg Hx/FS Hx/Imm Hx - Surgical History Surgical History: Yes Surgery Procedure, Year, and Place: [facility] - 3 STENTS IN RIGHT MAIN ARTERY - Family History Known Family History: Positive: Cardiac Disease - Father, Other - Hyperlipidemia - Social History Alcohol Use: Occasionally Substance Use Type: None Smoking Status (MU): Never Smoked Tobacco Review of Systems All Other Systems Reviewed And Are Negative: Yes Constitutional: Positive: Negative. Negative: Fever, Chills, Fatigue Skin: Positive: Negative Respiratory: Positive: Negative. Negative: Shortness Of Breath Cardiovascular: Positive: Negative Gastrointestinal: Positive: Abdominal Pain. Negative: Vomiting, Diarrhea, Nausea Genitourinary: Positive: Dysuria, Frequency, Urgency, Vaginal/Penile Burning, Vaginal/Penile Itching. Negative: Hematuria, Vaginal/Penile Discharge Neurological: Positive: Headache Physical Exam Triage Information Reviewed: Yes Appearance: Well-Appearing, No Pain Distress, Well-Nourished Vital Signs: Initial Vital Signs Temp 98.9 F 12/18/18 18:50 Pulse 72 12/18/18 18:50 Resp 18 12/18/18 18:50 BP 127/74 12/18/18 18:50 Pulse Ox 98 12/18/18 18:50 Lab Results 12/18/18 Range/Units 19:13 POC Urine Color Yellow POC Urine Clarity Clear POC Urine pH 7.0 (5-9) POC Ur Specif [place] 1.020 (1.010-1.030) POC Urine Protein Negative (Negative) POC Ur Glucose (UA) Negative (Negative) POC Urine Ketones Negative (Negative) POC Urine Blood Negative (Negative) POC Urine Nitrite Negative (Negative) POC Urine Bilirubin Negative (Negative) POC Urine Urobilinogen 0.2 (Negative) POC U Leukocyte Esteras Negative (Negative) Vital Signs Reviewed: Yes Eyes: Positive: Conjunctiva Clear ENT: Positive: Hearing grossly normal Neck: Positive: Supple Respiratory Exam: Normal Respiratory: Positive: Lungs clear, Normal breath sounds, No respiratory distress Cardiovascular Exam: Normal Cardiovascular: Positive: RRR Abdominal Exam: Normal Abdomen Description: Positive: No Organomegaly, Soft. Negative: Nontender - Mild tenderness to palpation of suprapubic area, CVA Tenderness (R), CVA Tenderness (L), Distended, Guarding, Hepatomegaly, McBurney's Point Tenderness, Splenomegaly Bowel Sounds: Positive: Present Neurological: Positive: Alert Psychological: Positive: Age Appropriate Behavior Complaint Male Course/Dx - Course Course Of Treatment: Patient declined genitalia examination including testicular exam. Discussed with patient that a UA results were negative but a culture will be sent and he will be notified with any changes that need to be maintained his treatment. Prescribed Pyridium for treatment of burning and pain. Instructed patient to follow up with his PCP or the urology referral for further follow-up. Instructed him to go to the ED if symptoms worsen including fever, worsening abdominal pain, nausea and vomiting, blood in the urine, and flank pain. - Differential Dx/Diagnosis Provider Diagnosis: Urinary tract infection symptoms Discharge ED - Sign-Out/Discharge Documenting (check all that apply): Patient Departure All imaging exams completed and their final reports reviewed: No Studies - Discharge Plan Condition: Stable Disposition: HOME Prescriptions: Phenazopyridine TAB* [Pyridium 100 mg TAB*] 100 mg PO TID PRN #12 tab PRN Reason: Pain - Moderate Referrals: Clayton Silver MD [Primary Care Provider] - As Soon As Possible Shoaib Cee MD [Medical Doctor] - Additional Instructions: As discussed, your urine test was negative today. A culture of your urine will be sent and you will be notified with any positive results. Take pyridium as prescribed to help relieve your pain and burning with urination. I strongly encourage you to follow up with your PCP or the urologist as listed below for further evaluation. Go to the emergency room if your symptoms worsen, including fever, nausea, vomiting, increasing pain, or blood in the urine. - Billing Disposition and Condition Condition: STABLE Disposition: Home - Attestation Statements Provider Attestation: I was available for consult. This patient was seen by the [facility]. The patient was not presented to, seen by, or examined by me. -Monty
[2018-12-21 13:45] LABS: Chlamydia trachomatis NAA Negative (Negative); Neisseria gonorrhoeae (GC) NAA Negative (Negative)
== END 2018-12-18 19:56 | disposition home or self-care (01) ==
LOC: UCEAST 18:13
DX: R35.0 Frequency of micturition (principal); R39.15 Urgency of urination; R30.0 Dysuria
CPT/HCPCS: 81003; 87086; 87491; 87591; 99212; G0463